=== PATIENT | female | born 1990 ===

== ENCOUNTER 2024-07-19 12:48 | Emergency (ER) | payer SELFPAY ==
[~2024-07-19] VITALS: Ht 167.6 cm; Wt 60.0 kg
[2024-07-19 12:55] VITALS: BP 104/75; PULSE 85; RESP 16; TEMP 98.2; O2SAT 100
== END 2024-07-19 13:58 | disposition left against medical advice (07) ==
LOC: ER 12:54
DX: T40.411A Poisoning by fentanyl or fentanyl analogs, accidental (unintentional), initial encounter (principal); X58.XXXA Exposure to other specified factors, initial encounter
CPT/HCPCS: 99283